=== PATIENT | male | born 1955 | race Caucasian/White ===

== ENCOUNTER → 2020-01-01 | Outpatient (CLI) | payer OTHER ==
--- NOTE | 2020-01-01 14:28 | KCIC ---
EXAM: Left knee, 3 views. HISTORY: Pain. COMPARISON: None. FINDINGS: 3 views of the left knee are obtained. There is medial compartment joint space narrowing and medial compartment predominant tricompartmental spurring. There is enthesopathy along the patella. No significant joint effusion is seen. IMPRESSION: Mild medial compartment predominant osteoarthritis of the left knee. Electronically signed by: Marisa Wolff MD (01/01/2020 2:24 PM) [facility] [place]
== END | disposition home or self-care (01) ==
LOC: KCIC 13:45
PROVIDERS: ATTEND Nurse Practitioner Family
DX: M17.12 Unilateral primary osteoarthritis, left knee (principal); M76.892 Other specified enthesopathies of left lower limb, excluding foot
CPT/HCPCS: 73562